=== PATIENT | female | born 2005 | race Hispanic/Latino ===

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

== ENCOUNTER 2024-10-02 11:30 | Emergency (ER) | payer SELFPAY ==
[~2024-10-02] VITALS: Ht 154.9 cm; Wt 49.9 kg
[~2024-10-02 11:30] MED LIST changes: +PANT40GR PO
[2024-10-02] MEDS: ondanSETRON 4MG INJ IVP ONE (12:18)
[2024-10-02] MEDS: morPHINE 4 MG SYG IVP ONE (12:18)
[2024-10-02] MEDS: 0.9%NACL 1000ML 1,000 ML IV ONE (12:18)
--- NOTE | 2024-10-02 12:20 | HMCIMG ---
US PELVIC NON-OB COMP HISTORY: Left lower quadrant pain COMPARISON: 10/03/2021 TECHNIQUE: Transabdominal pelvic ultrasound study was performed. FINDINGS: The uterus measures 6.4 x 2.9 x 3.7 cm. The right ovary is not well visualized. The left ovary measures 2.3 x 2 x 2.5 cm. There is left adnexal cyst measuring 3.9 x 3.4 x 3.1 cm unchanged. Flow is seen in left ovary. Endometrial thickness is 9 mm. No free fluid is seen in the cul-de-sac. IMPRESSION: 1. No adnexal mass is seen. There is left adnexal cyst measuring 3.9 x 3.4 x 3.1 cm unchanged.
[2024-10-02 12:24] LABS: APPEARANCE,URINE CLEAR (CLEAR); BILIRUBIN,URINE NEGATIVE (NEGATIVE); COLOR,URINE LIGHT-YELLOW (YELLOW); GLUCOSE, URINE (UA) NEGATIVE (NEGATIVE); KETONES,URINE NEGATIVE (NEGATIVE); LEUKOCYTE ESTERASE ,URINE NEGATIVE Leu/uL (NEGATIVE); NITRATE,URINE NEGATIVE (NEGATIVE); OCCULT BLOOD,URINE NEGATIVE (NEGATIVE); PROTEIN,URINE NEGATIVE (NEGATIVE); UROBILINOGEN,URINE 0.2 mg/dL (0.2-1.0)
--- NOTE | 2024-10-02 12:26 | ERN ---
ED Note History of Present Illness Stated Complaint: PELVIC PAIN Chief Complaint: Abdominal Pain Time Seen by MD: 11:33 Time Seen by Midlevel: 11:33 Dictation: Patient is a 19-year-old female with a history of ovarian cysts who presents to the emergency department with complaints of left lower abdominal pain onset last night. Patient denies any nausea, vomiting, diarrhea, constipation. Denies vaginal bleeding or discharge. Denies . Allergies: Coded Allergies: No Known Allergies (Unverified Allergy, Unknown, 03/05/19) Home Meds Active Scripts Ibuprofen (Ibuprofen) 600 Mg Tablet, 600 MG PO Q6H PRN for PAIN, #10 TAB Prov:FLOR BURTON TOLL REPAIRER CENTRAL OFFICE 10/02/24 Pantoprazole Sodium (Pantoprazole Sodium) 40 Mg Granpkt.dr, 40 MG PO DAILY, #15 PACK Prov:MELVINA GIRALDO MD 11/15/22 Ibuprofen (Ibuprofen) 600 Mg Tablet, 600 MG PO Q6H PRN for PAIN, #40 TAB 0 Refills Prov:RYAN PATTERSON MD 07/29/22 Oseltamivir Phosphate (Tamiflu) 75 Mg Cap, 75 MG PO BID for 5 Days, #10 CAP Prov:JULIET SOOD MD 03/30/22 Naproxen Sodium (Aleve) 220 Mg Tablet, 440 MG PO BID, #30 TAB Prov:ADALBERTO HUGO TOLL REPAIRER CENTRAL OFFICE 10/03/21 Past Medical History Past Medical History: Asthma, Ovarian Cyst Surgical History: Other Surgical History Other: OVARIAN CYST Social History: Negative, Lives with family LMP: Sep 27, 2024 : 0 RN Note Reviewed/Agreed w/PFSH: Yes Review of System Dictation Constitutional: Negative for fever,chills, and weight loss Eyes: Negative for injury, pain,redness, and discharge ENT: Negative for injury,pain or swelling Cardiovascular: Negative for chest pain, palpitations, and edema Respiratory: Negative for shortness of breath, cough, and wheezing, Abdomen/GI: Negative for nausea, vomiting, diarrhea, and constipation positive for left lower abdominal pain Back: Negative for injury and pain : Negative for injury, bleeding and discharge MS/Extremity: Negative for injury and deformity Skin: Negative for rash, and discoloration Neuro: Negative for headache, weakness, numbness, tingling, and seizure Psych: Negative for suicide ideation, homicidal ideation, and hallucinations Initial Vital Sign VS Vital Signs Date Time Temp Pulse Resp B/P (MAP) Pulse Ox O2 Delivery O2 Flow Rate FiO2 10/02/24 11:48 98.6 81 20 109/74 97 Room Air 0 10/02/24 11:56 21 Physical Exam Dictation Vital Signs reviewed General Appearance: Alert, oriented x 3, no acute distress, well developed, nourished. Head and Face: non-traumatic. Eyes: PERRL, pink conjunctivas, eyelid no trauma, anterior chamber with arcus senilis. Ears: Pinnas intact and no signs of trauma or erythema ear canals clear and no discharge TM no erythema Nose: No discharge, no bleeding. Oropharynx: Mouth normal, tongue pink. pharynx clear,no erythema, tonsils no exudates, no abscesses noted, mucous membrane moist Neck: Supple, non-tender, no thyromegaly, no masses, no JVD, no bruits Breast:Deferred Chest:No tenderness, no crepitus, no paradoxical movement, no retractions Lungs:Clear, well-ventilated, symmetric, no rales, no wheezing, no rhonchi, no stridor, good breath sounds bilaterally Heart: Regular rate, regular rhythm, no murmur, no gallops Vascular: no peripheral edema, Abdomen: Soft, positive bowel sounds, nondistended, no guarding, Left lower quadrant tenderness., no rebound, no masses no hepatomegaly, no splenomegaly, no Chacko's sign, no hernias. Rectal: Deferred Genital: Deferred Neurological: Normal speech, motor function intact, sensory function intact Musculoskeletal: Neck nontender, full range of motion, back nontender, full r henrik of motion, Extremities: nontender, full range of motion Skin: Color pink, dry, no turgor, no rash, no lacerations, no abrasions, no contusions. Lymphatic: Deferred Results (Laboratory/Radiology) Laboratory/Radiology Laboratory Tests Test 10/02/24 12:14 White Blood Count 3.4 K/uL (4.8-10.8) L Red Blood Count 4.42 MIL/uL (4.00-5.50) Hemoglobin 12.7 g/dL (12.0-16.0) Hematocrit 39.6 % (36-48) Mean Corpuscular Volume 89.6 fL (80-100) Mean Corpuscular Hemoglobin 28.7 pg (27.0-33.0) Mean Corpuscular Hemoglobin Concent 32.1 g/dL (32.0-36.0) Red Cell Distribution Width 14.6 % (11.0-15.5) Platelet Count 194 K/uL (130-400) Mean Platelet Volume 10.9 fL (7.5-10.5) H Immature Granulocyte % (Auto) 0.3 % (0-1) Neutrophils (%) (Auto) 50.5 % (40.0-77.0) Lymphocytes (%) (Auto) 41.6 % (21.0-51.0) Monocytes (%) (Auto) 6.1 % (3.0-13.0) Eosinophils (%) (Auto) 1.2 % (0.0-8.0) Basophils (%) (Auto) 0.3 % (0.0-5.0) Neutrophils # (Auto) 1.7 K/uL (1.8-7.7) L Lymphocytes # (Auto) 1.4 K/uL (1.0-4.8) Monocytes # (Auto) 0.2 K/uL (0.1-1.0) Eosinophils # (Auto) 0.04 K/uL (0.00-0.70) Basophils # (Auto) 0.01 K/uL (0.00-0.20) Absolute Immature Granulocyte (auto 0.01 K/uL (0-1) Nucleated Red Blood Cells 0.0 % (0.0-0.19) Urine Color LIGHT-YELLOW (YELLOW) Urine Appearance CLEAR (CLEAR) Urine pH 6.0 (5.0-8.0) Urine Specific [place] 1.020 (1.001-1.031) Urine Protein NEGATIVE mg/dL (NEGATIVE) Urine Glucose (UA) NEGATIVE mg/dL (NEGATIVE) Urine Ketones NEGATIVE mg/dL (NEGATIVE) Urine Occult Blood NEGATIVE (NEGATIVE) Urine Nitrate NEGATIVE (NEGATIVE) Urine Bilirubin NEGATIVE mg/dL (NEGATIVE) Urine Urobilinogen 0.2 mg/dL (0.2-1.0) Urine Leukocyte Esterase NEGATIVE Jeniffer/uL Urine HCG, Qualitative NEGATIVE (NEGATIVE) Sodium Level 141 mmol/L (136-145) Potassium Level 3.9 mmol/L (3.5-5.1) Chloride Level 102 mmol/L (101-111) Carbon Dioxide Level 29 mmol/L (21-32) Blood Urea Nitrogen 12 mg/dL (7-18) Creatinine 0.7 mg/dL (0.5-1.0) Glomerular Filtration Rate Calc 127 mL/min (>90) Random Glucose 89 mg/dL (70-105) Total Calcium 8.9 mg/dL (8.5-10.1) PATIENT: JOSE CAMPOVERDE MR#: [id number] : 2005 SEX: F AGE: 19 LOCATION: [facility] ORDER [id number] STATUS: REG ER REPORT#: [id number] SERVICE [id number] REASON: left lower pelvic pain ORDERING PHYSICIAN: FLOR BURTON PROCEDURE: PELVCOMP - US PELVIC NON-OB COMP US PELVIC NON-OB COMP HISTORY: Left lower quadrant pain COMPARISON: 10/03/2021 TECHNIQUE: Transabdominal pelvic ultrasound study was performed. FINDINGS: The uterus measures 6.4 x 2.9 x 3.7 cm. The right ovary is not well visualized. The left ovary measures 2.3 x 2 x 2.5 cm. There is left adnexal cyst measuring 3.9 x 3.4 x 3.1 cm unchanged. Flow is seen in left ovary. Endometrial thickness is 9 mm. No free fluid is seen in the cul-de-sac. IMPRESSION: 1. No adnexal mass is seen. There is left adnexal cyst measuring 3.9 x 3.4 x 3.1 cm unchanged. Labs Reviewed?: Yes ED Course ED Course Orders Procedure Category Date Status Time Cbc With Differential LAB 10/02/24 Complete 11:37 ,Urine Test LAB 10/02/24 Complete 11:37 Urinalysis Profile LAB 10/02/24 Complete 11:37 0.9%Nacl 1000ml (Ns PHA 10/02/24 Complete 1000ml) 12:00 Morphine 4mg Syg PHA 10/02/24 Complete (Morphine 4mg Syg) 12:00 Ondansetron 4mg Inj PHA 10/02/24 Complete (Zofran 4mg Inj) 12:00 Basic Metabolic Panel LAB 10/02/24 Complete 11:37 Us Pelvic Non-Ob Comp US 10/02/24 Resulted 11:37 Current Medications Medications (Trade) Dose Ordered Sig/Kimmy Route PRN Reason Start Time Stop Time Status Last Admin Dose Admin Morphine Sulfate (morPHINE 4MG SYG) 4 mg ONCE ONCE IVP 10/02/24 12:00 10/02/24 12:01 DC 10/02/24 12:18 Ondansetron HCl (zoFRAN 4MG INJ) 4 mg ONCE ONCE IVP 10/02/24 12:00 10/02/24 12:01 DC 10/02/24 12:18 Sodium Chloride 1,000 ml @ 0 mls/hr ONCE ONCE IV 10/02/24 12:00 10/02/24 12:01 DC 10/02/24 12:18 Vital Signs Date Time Temp Pulse Resp B/P (MAP) Pulse Ox O2 Delivery O2 Flow Rate FiO2 10/02/24 13:39 98.2 81 16 112/72 99 Room Air* 0 21 10/02/24 11:56 98.2 80 16 109/74 98 Room Air* 0 21 10/02/24 11:48 98.6 81 20 109/74 97 Room Air 0 Medical Decision Making MDM The Patient is a 19-year-old female with a history of ovarian cysts who presents to the emergency department with complaints of left lower abdominal pain onset last night. Patient denies any nausea, vomiting, diarrhea, constipation. Denies vaginal bleeding or discharge. Denies . Seizure no leukocytosis, no anemia, chemistry showed no electrolyte imbalance, normal renal function, urinalysis unremarkable. Awake ultrasound revealed a left adnexal cyst measuring 3.9 x 3.4 x 3.1 cm unchanged from previous. Positive flow. Patient's pain improved with pain medication. Patient in no acute distress, nontoxic appearance will be discharged to follow up with PCP in OBGYN. Differential diagnosis: Ovarian cyst, dehydration, ovarian torsion, ectopic Need for hospitalization: Patient does not meet criteria for hospitalization. There are no social concerns with this patient. DX & DISP Disposition: Discharge Departure Impression: Primary Impression: Adnexal cyst Condition: Stable Scripts Ibuprofen (Ibuprofen) 600 Mg Tablet 600 MG PO Q6H PRN for PAIN, #10 TAB Prov: MICHEALSHAWANDAFLOR TOLL REPAIRER CENTRAL OFFICE 10/02/24 Additional Instructions: Please follow up with your primary doctor in OBGYN in 1-2 days. If symptoms w orsen please return to ER. FOLLOW-UP WITH PRIMARY CARE PROVIDER IN 1 TO 2 DAYS. TAKE MEDICATIONS DIRECTED HERE IN THE EMERGENCY ROOM. OKAY TO CONTINUE HOME MEDICATIONS UNLESS OTHERWISE DISCUSSED DURING YOUR VISIT IN THE EMERGENCY ROOM TODAY. RETURN TO YOUR NEAREST EMERGENCY ROOM IF SYMPTOMS WORSEN OR IF THERE IS NO IMPROVEMENT. CALL 911 IF YOU NEED IMMEDIATE ASSISTANCE. TAKE TYLENOL OR MOTRIN [id number] NEEDED AND IF NO CONTRAINDICATIONS ARE PRESENT. INCREASE ORAL HYDRATION. A WOUND CULTURE OR URINE CULTURE WAS ORDERED HERE IN THE EMERGENCY ROOM DEPARTMENT PLEASE FOLLOW-UP WITH PRIMARY CARE PROVIDER AND ADVISE THEM TO GET REPEAT PORTS FROM OUR FACILITY. IF YOU HAD ANY DERIK WRAP/SPLINTS THAT WERE APPLIED HERE, PLEASE DO NOT REMOVE THEM UNTIL YOU SEE YOUR PRIMARY CARE OR SPECIALTY. Referrals: SHANNAN HDZ (PCP) Time of Disposition: 13:18 I have reviewed the case, and I agree with, Diagnosis and Plan FLOR BURTON Oct 02, 2024 12:26 OLGA CARTER DO Oct 04, 2024 08:21
[2024-10-02 12:27] LABS: BASOPHILS # (AUTO) 0.01 K/uL (0.00-0.20); BASOPHILS % (AUTO) 0.3 % (0.0-5.0); EOSINOPHILS # (AUTO) 0.04 K/uL (0.00-0.70); EOSINOPHILS % (AUTO) 1.2 % (0.0-8.0); HEMATOCRIT 39.6 % (36-48); IMMATURE GRANULOCYTE ABSOLUTE 0.01 K/uL (0-1); LYMPHOCYTES # (AUTO) 1.4 K/uL (1.0-4.8); LYMPHOCYTES % (AUTO) 41.6 % (21.0-51.0); MEAN CORPUSCULAR HEMOGLOBIN 28.7 pg (27.0-33.0); MEAN CORPUSCULAR HGB CONC 32.1 g/dL (32.0-36.0); MEAN CORPUSCULAR VOLUME 89.6 fL (80-100); MONOCYTES # (AUTO) 0.2 K/uL (0.1-1.0); MONOCYTES % (AUTO) 6.1 % (3.0-13.0); NEUTROPHILS # (AUTO) 1.7 K/uL (1.8-7.7); NEUTROPHILS % (AUTO) 50.5 % (40.0-77.0); PLATELET COUNT (AUTO) 194 K/uL (130-400); RED BLOOD CELL COUNT(AUTO) 4.42 MIL/uL (4.00-5.50); RED CELL DISTRIBUTION WIDTH 14.6 % (11.0-15.5); WHITE BLOOD COUNT (AUTO) 3.4 K/uL (4.8-10.8)
[2024-10-02 12:31] LABS: CREATININE 0.7 mg/dL (0.5-1.0); POTASSIUM 3.9 mmol/L (3.5-5.1)
[2024-10-02 12:32] LABS: ADD UA MICROSCOPIC NO; HCG,QUALITATIVE URINE NEGATIVE (NEGATIVE)
[2024-10-02] MEDS ORDERED: IBUP-2070 PO (13:22)
[2024-10-02 13:39] VITALS: BP 112/72; PULSE 81; RESP 16; TEMP 98.3; O2SAT 99
== END 2024-10-02 14:00 | disposition home or self-care (01) ==
LOC: EDH 11:30
DX: N83.8 Other noninflammatory disorders of ovary, fallopian tube and broad ligament (principal); J45.909 Unspecified asthma, uncomplicated; Z79.899 Other long term (current) drug therapy
CPT/HCPCS: 99285; 96374; 76856; 96375; 80048; 85025; 81003; 81025; 36415; J7030; J2405; J2270

== ENCOUNTER 2025-01-02 17:42 | Emergency (ER) | payer SELFPAY ==
[~2025-01-02] VITALS: Ht 154.9 cm; Wt 54.4 kg
[2025-01-02 18:02] LABS: NUCLEATED RED BLOOD CELLS 0.0 % (0.0-0.19); PLATELET COUNT (AUTO) 199.0 K/uL (130-400); RED BLOOD CELL COUNT(AUTO) 4.54 MIL/uL (4.00-5.50); RED CELL DISTRIBUTION WIDTH 14.9 % (11.0-15.5); WHITE BLOOD COUNT (AUTO) 8.0 K/uL (4.8-10.8)
[2025-01-02 18:10] LABS: APPEARANCE,URINE CLEAR (CLEAR); GLUCOSE, URINE (UA) NEGATIVE (NEGATIVE); LEUKOCYTE ESTERASE ,URINE NEGATIVE Leu/uL (NEGATIVE); NITRATE,URINE NEGATIVE (NEGATIVE); OCCULT BLOOD,URINE NEGATIVE (NEGATIVE)
[2025-01-02 18:11] LABS: ADD UA MICROSCOPIC NO
[2025-01-02 18:13] LABS: CREATININE 0.6 mg/dL (0.5-1.0); GLOMERULAR FILTR. RATE CALC 132.0 mL/min (>90); GLUCOSE,RANDOM 90.0 mg/dL (70-105); SODIUM SERUM 139.0 mmol/L (136-145); UREA NITROGEN, BLOOD 9.0 mg/dL (7-18)
[2025-01-02 18:28] LABS: HCG,QUANTITATIVE 0.0 mIU/mL (0-5)
[2025-01-02 19:05] VITALS: BP 115/75; PULSE 92; RESP 16; TEMP 98.3; O2SAT 98
[2025-01-02] MEDS: LIDOCAINE HCL 2% VISCOUS 15 ML UDCUP PO ONE (19:11)
[2025-01-02] MEDS: MAG/ALUM/SIMETH 30 ML UDCUP PO ONE (19:11)
[2025-01-02] MEDS: DICYCLOMINE HCL 10 MG/5 ML ML PO ONE (19:11)
--- NOTE | 2025-01-02 19:52 | ERN ---
ED Note History of Present Illness Stated Complaint: ABD PAIN Chief Complaint: Abdominal Pain Time Seen by MD: 17:45 Time Seen by Midlevel: 17:50 Dictation: 19-year-old female with a history of asthma coming in with complaints of epigastric pain and left lower quadrant pain for three days. Patient states she has a history of a left ovarian cyst removal. Patient denies having any fevers, nausea, vomiting. Unknown her last menstruation, states she is irregular. Allergies: Coded Allergies: No Known Allergies (Unverified Allergy, Unknown, 03/05/19) Home Meds Active Scripts Ibuprofen (Ibuprofen) 600 Mg Tablet, 600 MG PO Q6H PRN for PAIN, #10 TAB Prov:FLOR BURTON GANG MOWER OPERATOR 10/02/24 Pantoprazole Sodium (Pantoprazole Sodium) 40 Mg Granpkt.dr, 40 MG PO DAILY, #15 PACK Prov:MELVINA GIRALDO MD 11/15/22 Ibuprofen (Ibuprofen) 600 Mg Tablet, 600 MG PO Q6H PRN for PAIN, #40 TAB 0 Refills Prov:RYAN PATTERSON MD 07/29/22 Oseltamivir Phosphate (Tamiflu) 75 Mg Cap, 75 MG PO BID for 5 Days, #10 CAP Prov:JULIET SOOD MD 03/30/22 Naproxen Sodium (Aleve) 220 Mg Tablet, 440 MG PO BID, #30 TAB Prov:ADALBERTO HUGO GANG MOWER OPERATOR 10/03/21 Past Medical History Past Medical History: Ovarian Cyst Surgical History: Other Surgical History Other: OVARIAN CYST REMOVAL Social History: Negative, Lives with family LMP: November 20, 2024 : 0 Review of System Dictation Constitutional: Negative for fever,chills, and weight loss Eyes: Negative for injury, pain,redness, and discharge ENT: Negative for injury,pain or swelling Cardiovascular: Negative for chest pain, palpitations, and edema Respiratory: Negative for shortness of breath, cough, and wheezing, Abdomen/GI: Complaining of left lower quadrant pain Back: Negative for injury and pain : Negative for injury, bleeding and discharge MS/Extremity: Negative for injury and deformity Skin: Negative for rash, and discoloration Neuro: Negative for headache, weakness, numbness, tingling, and seizure Psych: Negative for suicide ideation, homicidal ideation, and hallucinations Review of Systems: was completed Initial Vital Sign VS Vital Signs Date Time Temp Pulse Resp B/P (MAP) Pulse Ox O2 Delivery O2 Flow Rate FiO2 01/02/25 17:45 97.9 94 18 117/79 94 Room Air 0 01/02/25 19:05 21 Physical Exam Dictation General: awake, alert, NAD Head/Face: Normocephalic, atraumatic Eyes: PERRL, EOMI, vision at baseline ENT: oral cavity clear, TMs clear, no signs of infection Neck: Trachea midline, supple, no nuchal rigidity Cardiovascular: RRR, normal S1/S2, No MRGs, no JVD Respiratory: CTAB, no respiratory distress, No rales or wheezes Abdomen: Soft, non-tender, non-distended, normal bowel sounds, no guarding or rebound. Skin: Warm, dry, normal turgor, no rash MS/Extremity: Pulses equal, no cyanosis, neurovascular intact, FROM Neuro: COAx4, GCS 15, strength 5/5, CN 2-12 intact, normal cerebellar exam, normal gait, Psych: Normal behavior, mood, and affect normal Results (Laboratory/Radiology) Laboratory/Radiology Laboratory Tests Test 01/02/25 17:51 01/02/25 17:56 Urine Color YELLOW (YELLOW) Urine Appearance CLEAR (CLEAR) Urine pH 6.5 (5.0-8.0) Urine Specific [place] 1.022 (1.001-1.031) Urine Protein NEGATIVE mg/dL (NEGATIVE) Urine Glucose (UA) NEGATIVE mg/dL (NEGATIVE) Urine Ketones 10 mg/dL (NEGATIVE) H Urine Occult Blood NEGATIVE (NEGATIVE) Urine Nitrate NEGATIVE (NEGATIVE) Urine Bilirubin NEGATIVE mg/dL (NEGATIVE) Urine Urobilinogen 0.2 mg/dL (0.2-1.0) Urine Leukocyte Esterase NEGATIVE Jeniffer/uL White Blood Count 8.0 K/uL (4.8-10.8) Red Blood Count 4.54 MIL/uL (4.00-5.50) Hemoglobin 13.6 g/dL (12.0-16.0) Hematocrit 41.0 % (36-48) Mean Corpuscular Volume 90.3 fL (80-100) Mean Corpuscular Hemoglobin 30.0 pg (27.0-33.0) Mean Corpuscular Hemoglobin Concent 33.2 g/dL (32.0-36.0) Red Cell Distribution Width 14.9 % (11.0-15.5) Platelet Count 199 K/uL (130-400) Mean Platelet Volume 10.4 fL (7.5-10.5) Nucleated Red Blood Cells 0.0 % (0.0-0.19) Sodium Level 139 mmol/L (136-145) Potassium Level 3.5 mmol/L (3.5-5.1) Chloride Level 103 mmol/L (101-111) Carbon Dioxide Level 26 mmol/L (21-32) Blood Urea Nitrogen 9 mg/dL (7-18) Creatinine 0.6 mg/dL (0.5-1.0) Glomerular Filtration Rate Calc 132 mL/min (>90) Random Glucose 90 mg/dL (70-105) Total Calcium 9.7 mg/dL (8.5-10.1) Lipase 26 U/L (16-77) Human Chorionic Gonadotropin, Quant 0 mIU/mL (0-5) Labs Reviewed?: Yes ED Course ED Course Orders Procedure Category Date Status Time Cbc Without LAB 01/02/25 Complete Differential 17:50 Basic Metabolic Panel LAB 01/02/25 Complete 17:50 Lipase LAB 01/02/25 Complete 17:50 Urinalysis Profile LAB 01/02/25 Complete 17:50 Hcg,Quantitative LAB 01/02/25 Complete 17:50 Us Pelvic Non-Ob Comp US 01/02/25 Taken 17:50 Lidocaine Hcl 2% PHA 01/02/25 Complete Viscous (Lidocaine Hcl 19:00 Mag/Alum/Simeth 30ml PHA 01/02/25 Complete (Maalox Plus 30ml) 19:00 Dicyclomine Hcl PHA 01/02/25 Complete (Bentyl 10mg/5ml 19:00 Ketorolac PHA 01/02/25 Complete Tromethamine 15mg/Ml 18:43 Current Medications Medications (Trade) Dose Ordered Sig/Kimmy Route PRN Reason Start Time Stop Time Status Last Admin Dose Admin Al Hydroxide/Mg Hydroxide (MAALox PLUS 30ML) 30 ml ONCE ONCE PO 01/02/25 19:00 01/02/25 19:01 DC 01/02/25 19:11 Dicyclomine HCl (Bentyl 10mg/5ml Syrup) 10 mg ONCE ONCE PO 01/02/25 19:00 01/02/25 19:01 DC 01/02/25 19:11 Ketorolac Tromethamine (toRADol) 15 mg ONCE STAT IM 01/02/25 18:43 01/02/25 18:46 DC 01/02/25 19:11 Lidocaine HCl (Lidocaine HCl 2% Viscous) 10 ml ONCE ONCE PO 01/02/25 19:00 01/02/25 19:01 DC 01/02/25 19:11 Vital Signs Date Time Temp Pulse Resp B/P (MAP) Pulse Ox O2 Delivery O2 Flow Rate FiO2 01/02/25 19:05 98.2 92 16 115/75 98 Room Air* 0 21 01/02/25 17:45 97.9 94 18 117/79 94 Room Air 0 Medical Decision Making MDM MDM: 19-year-old female with a history of asthma coming in with complaints of epigastric pain and left lower quadrant pain for three days. Patient states she has a history of a left ovarian cyst removal. Patient denies having any fevers, nausea, vomiting. Unknown her last menstruation, states she is irregular. Blood work is unremarkable. Preliminary report shows flow to bilateral ovaries, a cyst in the left ovary in tracer free fluid in the cul-de-sac. Repeat my physical abdominal exam, abdomen is soft, nontender on palpation. Discussed findings with the patient and mother. Educated them that they need to follow up outpatient with an OBGYN as she may need a elective removal of the cyst again. Educated on signs and symptoms of when to return to the ER like severe abdominal pain, nausea and vomiting fever. Both verbalized understanding, answered all questions. Differential diagnosis: Urinary tract infection, gastritis, PUD, left ovarian cyst, ectopic , ovarian torsion Rationale: Tests considered and ordered secondary to shared decision making include: Previous outside records reviewed: Old ER visits. Risk of complication and/or morbidity or mortality of patient management: None Medications-Per medication reconciliation Need for hospitalization: Patient does not meet criteria for hospitalization. Need for emergency major/minor surgery: No There are no social concerns with this patient. Prescription drug management Prescriptions will include symptomatic care Patient's prior external medical records from other ER visits were reviewed by me as indicated. Prior testing and results from previous visits were reviewed. Prior tests were taken into account with medical decision making and resource utilization, independent historian/historians were used to obtain complete medical history. I independently interpreted the test that were performed, results were reviewed by me and considered findings on radiology if ordered. Medical management and examination interpretation discussions were had by me with other qualified healthcare professionals as indicated for the patient's care. DX & DISP Disposition: Discharge Departure Impression: Primary Impression: Ovarian cyst Condition: Stable Additional Instructions: Follow up with an OBGYN outpatient. Return to an ER with OBGYN services if you develop any severe abdominal pain, nausea or vomiting. Referrals: SHANNAN HDZ (PCP) Time of Disposition: 19:51 I have reviewed the case, and I agree with, Diagnosis and Plan SYLVIA MEDINA NP Jan 02, 2025 19:52
--- NOTE | 2025-01-02 20:27 | HMCIMG ---
EXAMINATION: US Pelvis, Complete. CLINICAL HISTORY: Patient presents with left lower quadrant pain. TECHNIQUE: Transabdominal pelvic ultrasound (complete) with image documentation. COMPARISON: Compared to prior ultrasound pelvis dated October 02, 2024. FINDINGS: ENDOMETRIUM: Endometrial thickness measures 12 mm. UTERUS: The uterus measures 6.8 x 4.0 x 3.8 cm and is within normal limits. No fibroid or uterine mass identified. RIGHT OVARY: Measures 2.3 x 1.8 x 2.5 cm. Normal Doppler flow. No abnormal mass. LEFT OVARY: Measures 2.6 x 1.7 x 2.6 cm. Normal Doppler flow. Left ovarian cyst measuring 4.0 x 4.6 x 3.7 cm. FREE FLUID: Trace free fluid in the cul-de-sac. IMPRESSION: Left ovarian cyst measuring 4.0 x 4.6 x 3.7 cm, increased since the prior. Trace free fluid in the cul-de-sac. /[place]
== END 2025-01-02 20:03 | disposition home or self-care (01) ==
LOC: EDH 17:42
DX: N83.202 Unspecified ovarian cyst, left side (principal); R10.2 Pelvic and perineal pain; Z79.899 Other long term (current) drug therapy; Z98.890 Other specified postprocedural states
CPT/HCPCS: 99285; 76856; 80048; 84702; 83690; 85027; 81003; 36415; 96372; J1885

== ENCOUNTER 2025-06-19 08:50 | Emergency (ER) | payer SELFPAY ==
[~2025-06-19] VITALS: Ht 154.9 cm; Wt 56.7 kg
[~2025-06-19 08:50] MED LIST changes: +IBUP-1492 PO; -IBUP-2070 PO; +MOXIOS OU
--- NOTE | 2025-06-19 09:47 | ERN ---
ED Note History of Present Illness Stated Complaint: C/O LEFT SIDE PELVIC PAIN X 3 DAYS Chief Complaint: Pelvic Pain Time Seen by MD: 08:57 Dictation: Patient is a 20-year-old female who presented to the ER complaining of left lower quadrant/pelvic pain x4 days. Denies fever or chills. No urinary symptoms. Allergies: Coded Allergies: No Known Allergies (Unverified Allergy, Unknown, 03/05/19) Home Meds Active Scripts Ibuprofen (Ibuprofen) 600 Mg Tablet, 1 TAB PO TID for pain for 30 Days, #90 TAB 0 Refills with food Prov:ANDRZEJ MUNOZ MD 06/19/25 Moxifloxacin HCl (Vigamox 0.5% Ophth Soln) 0.5 % Opsol, 1 DROP OU TID for 7 Days, #5 ML Prov:TRENT BAZZI [employer] 05/12/25 Ibuprofen (Ibuprofen) 600 Mg Tablet, 600 MG PO Q6H PRN for PAIN, #10 TAB Prov:FLOR BURTON [employer] 10/02/24 Pantoprazole Sodium (Pantoprazole Sodium) 40 Mg Granpkt.dr, 40 MG PO DAILY, #15 PACK Prov:MELVINA GIRALDO MD 11/15/22 Ibuprofen (Ibuprofen) 600 Mg Tablet, 600 MG PO Q6H PRN for PAIN, #40 TAB 0 Refills Prov:RYAN PATTERSON MD 07/29/22 Oseltamivir Phosphate (Tamiflu) 75 Mg Cap, 75 MG PO BID for 5 Days, #10 CAP Prov:JULIET SOOD MD 03/30/22 Naproxen Sodium (Aleve) 220 Mg Tablet, 440 MG PO BID, #30 TAB Prov:ADALBERTO HUGO [employer] 10/03/21 Past Medical History Past Medical History: Asthma Additional Past Medical Hx: ovarian cyst Surgical History: Other Surgical History Other: OVARIAN SURGERY Social History: Negative, Lives with family History: Not Applicable : 0 Review of System Dictation NEGATIVE EXCEPT PER HPI Constitutional: Negative for fever,chills, and weight loss Eyes: Negative for injury, pain,redness, and discharge ENT: Negative for injury,pain or swelling Cardiovascular: denies chest pain, palpitations, and edema Respiratory: Negative for shortness of breath, cough, and wheezing, Abdomen/GI: Left lower quadrant abdominal pain Back: Negative for injury and pain : Negative for injury, bleeding and discharge MS/Extremity: Negative for injury and deformity Skin: Negative for rash, and discoloration Neuro: Negative for headache, weakness, numbness, tingling, and seizure Psych: Negative for suicide ideation, homicidal ideation, and hallucinations Initial Vital Sign VS Vital Signs Date Time Temp Pulse Resp B/P (MAP) Pulse Ox O2 Delivery O2 Flow Rate FiO2 06/19/25 08:51 98.1 82 16 120/71 99 Room Air 06/19/25 11:05 0 21 Physical Exam Dictation General: awake, alert, NAD Head/Face: Normocephalic, atraumatic Eyes: PERRL, EOMI, vision at baseline ENT: oral cavity clear, TMs clear, no signs of infection Neck: Trachea midline, supple, no nuchal rigidity Cardiovascular: RRR, normal S1/S2, No MRGs, no JVD Respiratory: CTAB, no respiratory distress, No rales or wheezes Abdomen: Soft , left groin tenderness Skin: Warm, dry, normal turgor, no rash MS/Extremity: Pulses equal, no cyanosis, neurovascular intact, FROM Neuro: COAx4, GCS 15, strength 5/5, CN 2-12 intact, normal cerebellar exam, normal gait, Psych: Normal behavior, mood, and affect normal Results (Laboratory/Radiology) Laboratory/Radiology Laboratory Tests Test 06/19/25 09:30 06/19/25 09:53 Urine Color LIGHT-YELLOW (YELLOW) Urine Appearance CLEAR (CLEAR) Urine pH 5.5 (5.0-8.0) Urine Specific Athena 1.027 (1.001-1.031) Urine Protein NEGATIVE mg/dL (NEGATIVE) Urine Glucose (UA) NEGATIVE mg/dL (NEGATIVE) Urine Ketones NEGATIVE mg/dL (NEGATIVE) Urine Occult Blood NEGATIVE (NEGATIVE) Urine Nitrate NEGATIVE (NEGATIVE) Urine Bilirubin NEGATIVE mg/dL (NEGATIVE) Urine Urobilinogen 0.2 mg/dL (0.2-1.0) Urine Leukocyte Esterase NEGATIVE Jeniffer/uL Urine HCG, Qualitative NEGATIVE (NEGATIVE) White Blood Count 5.9 K/uL (4.8-10.8) Red Blood Count 4.11 MIL/uL (4.00-5.50) Hemoglobin 12.3 g/dL (12.0-16.0) Hematocrit 37.9 % (36-48) Mean Corpuscular Volume 92.2 fL (80-100) Mean Corpuscular Hemoglobin 29.9 pg (27.0-33.0) Mean Corpuscular Hemoglobin Concent 32.5 g/dL (32.0-36.0) Red Cell Distribution Width 14.6 % (11.0-15.5) Platelet Count 178 K/uL (130-400) Mean Platelet Volume 10.7 fL (7.5-10.5) H Immature Granulocyte % (Auto) 0.3 % (0-1) Neutrophils (%) (Auto) 70.5 % (40.0-77.0) Lymphocytes (%) (Auto) 21.3 % (21.0-51.0) Monocytes (%) (Auto) 6.8 % (3.0-13.0) Eosinophils (%) (Auto) 0.8 % (0.0-8.0) Basophils (%) (Auto) 0.3 % (0.0-5.0) Neutrophils # (Auto) 4.2 K/uL (1.8-7.7) Lymphocytes # (Auto) 1.3 K/uL (1.0-4.8) Monocytes # (Auto) 0.4 K/uL (0.1-1.0) Eosinophils # (Auto) 0.05 K/uL (0.00-0.70) Basophils # (Auto) 0.02 K/uL (0.00-0.20) Absolute Immature Granulocyte (auto 0.02 K/uL (0-1) Nucleated Red Blood Cells 0.0 % (0.0-0.19) Sodium Level 139 mmol/L (136-145) Potassium Level 4.2 mmol/L (3.5-5.1) Chloride Level 104 mmol/L (101-111) Carbon Dioxide Level 28 mmol/L (21-32) Blood Urea Nitrogen 14 mg/dL (7-18) Creatinine 0.6 mg/dL (0.5-1.0) Glomerular Filtration Rate Calc 131 mL/min (>90) Random Glucose 93 mg/dL (70-105) Total Calcium 9.2 mg/dL (8.5-10.1) ED Course ED Course Orders Procedure Category Date Status Time Urinalysis Profile LAB 06/19/25 Complete 09:12 ,Urine Test LAB 06/19/25 Complete 09:44 Cbc With Differential LAB 06/19/25 Complete 09:44 Basic Metabolic Panel LAB 06/19/25 Complete 09:44 Ct Abdomen/Pelvis CT 06/19/25 Resulted W/Contrast 09:44 Iohexol (Omnipaque) PHA 06/19/25 Complete 11:20 Ketorolac PHA 06/19/25 Complete Tromethamine 15mg/Ml 12:30 Us Pelvic Non-Ob Comp US 06/19/25 Resulted 12:37 Current Medications Medications (Trade) Dose Ordered Sig/Kimmy Route PRN Reason Start Time Stop Time Status Last Admin Dose Admin Iohexol (Omnipaque) 75 ml STK-MED ONCE IV 06/19/25 11:20 06/19/25 11:20 DC Ketorolac Tromethamine (toRADol) 15 mg ONCE ONCE IV 06/19/25 12:30 06/19/25 12:31 DC 06/19/25 12:52 Vital Signs Date Time Temp Pulse Resp B/P (MAP) Pulse Ox O2 Delivery O2 Flow Rate FiO2 06/19/25 15:42 97.5 62 20 109/67 98 Room Air* 0 21 06/19/25 11:05 98.1 73 18 120/82 97 Room Air* 0 21 06/19/25 08:51 98.1 82 16 120/71 99 Room Air Medical Decision Making MDM Abdominal pain Possible UTI Possible diverticulitis Possible UA, test, CT abdomen, laboratory workup DX & DISP Disposition: Discharge Departure Impression: Primary Impression: Cyst of ovary, left Condition: Stable Scripts Ibuprofen (Ibuprofen) 600 Mg Tablet 1 TAB PO TID for pain for 30 Days, #90 TAB 0 Refills with food Prov: ANDRZEJ MUNOZ MD 06/19/25 Additional Instructions: RETURN TO ER FOR ANY ACUTE OR WORSENING SYMPTOMS. FOLLOW-UP IN 1-2 DAYS WITH PRIMARY PROVIDER FOR RECHECK OF TODAY'S SYMPTOMS. Referrals: SHANNAN HDZ (PCP) Time of Disposition: 15:11 ANDRZEJ MUNOZ MD Jun 19, 2025 09:47
[2025-06-19 09:55] LABS: APPEARANCE,URINE CLEAR (CLEAR); GLUCOSE, URINE (UA) NEGATIVE (NEGATIVE); LEUKOCYTE ESTERASE ,URINE NEGATIVE Leu/uL (NEGATIVE); NITRATE,URINE NEGATIVE (NEGATIVE); OCCULT BLOOD,URINE NEGATIVE (NEGATIVE)
[2025-06-19 09:59] LABS: ADD UA MICROSCOPIC NO
[2025-06-19 10:04] LABS: IMMATURE GRANULOCYTE ABSOLUTE 0.02 K/uL (0-1); NUCLEATED RED BLOOD CELLS 0.0 % (0.0-0.19); PLATELET COUNT (AUTO) 178 K/uL (130-400); RED BLOOD CELL COUNT(AUTO) 4.11 MIL/uL (4.00-5.50); RED CELL DISTRIBUTION WIDTH 14.6 % (11.0-15.5); WHITE BLOOD COUNT (AUTO) 5.9 K/uL (4.8-10.8)
[2025-06-19 10:12] LABS: CREATININE 0.6 mg/dL (0.5-1.0); GLOMERULAR FILTR. RATE CALC 131.0 mL/min (>90); GLUCOSE,RANDOM 93.0 mg/dL (70-105); SODIUM SERUM 139.0 mmol/L (136-145); UREA NITROGEN, BLOOD 14.0 mg/dL (7-18)
[2025-06-19] MEDS ORDERED: IOHEXOL-350 75 ML VIAL IV ONE (11:20)
--- NOTE | 2025-06-19 12:20 | HMCIMG ---
EXAM: CT Abdomen and Pelvis with IV Contrast CLINICAL HISTORY: Left lower quadrant pain. TECHNIQUE: Axial computed tomography images of the abdomen and pelvis with intravenous contrast. CONTRAST: With intravenous contrast. COMPARISON: US Pelvic 01/02/25 FINDINGS: LUNG BASES: The lung bases appear clear. No pleural effusions. LIVER: Unremarkable. GALLBLADDER AND BILE DUCTS: The gallbladder appears within normal limits. No radiopaque gallstones. No biliary ductal dilatation. PANCREAS: Unremarkable. SPLEEN: Unremarkable. ADRENAL GLANDS: Unremarkable. KIDNEYS, URETERS, AND BLADDER: The kidneys appear within normal limits. No hydronephrosis or hydroureter. No urinary calculi. STOMACH AND BOWEL: Unremarkable appearance of the stomach and bowel. No evidence of bowel obstruction. No evidence suggesting enteritis or colitis. APPENDIX: No evidence of acute appendicitis on CT examination. PERITONEUM: Trace free fluid in the cul-de-sac. No free air. LYMPH NODES: No lymphadenopathy. REPRODUCTIVE: Cervix appears diffusely bulky in size, measuring 4 x 6 cm. A hypodense, well-defined left adnexal cyst closely abutting the ovary, measuring 5.3 x 4.2 x 4.1 cm, posteriorly displacing the urinary bladder with maintained fat planes. No evidence of calcification, septation, or solid component within the cyst. VASCULATURE: No evidence of abdominal aortic aneurysm. BONES: No aggressive appearing osseous lesion. No acute osseous pathology. IMPRESSION: Well-defined left ovarian cyst measuring up to 5.3 cm, without suspicious imaging features. Diffuse bulky appearance of the cervix. Correlation with clinical examination and pelvic ultrasound findings suggested. Trace free fluid in the cul-de-sac. /Kevin
--- NOTE | 2025-06-19 14:59 | HMCIMG ---
EXAM: US Pelvis, Complete. CLINICAL HISTORY: left ovary cyst painful TECHNIQUE: transabdominal pelvic ultrasound (complete) with image documentation. COMPARISON: ultrasound dated 01.02.[address] dated 06.19.25. FINDINGS: ENDOMETRIUM: Endometrium measures approximately 7 mm in thickness, within normal limits. UTERUS/CERVIX: Uterus measures approximately 5.7 3.0 3.3 cm. Normal uterine contour and echotexture are seen. No uterine fibroid or other myometrial mass is identified. RIGHT OVARY: Right ovary measures approximately 1.8 1.1 1.3 cm. Normal Doppler vascularity is preserved. No focal ovarian mass is seen. LEFT OVARY: Left ovary is obscured on the present examination. A left adnexal cyst is noted measuring approximately 3.9 4.3 4.0 cm. The cyst appears stable in size compared with prior ultrasound dated 01.02.[address] dated 06.19.25. FREE FLUID: No free fluid is seen. IMPRESSION: Stable left adnexal cyst compared with prior ultrasound dated 01.02.[address] dated 06.19.25. Left ovary is obscured on the present examination. Otherwise unremarkable transabdominal pelvic ultrasound. /[place]
[2025-06-19] MEDS ORDERED: IBUP-1492 PO (15:13)
[2025-06-19 15:42] VITALS: BP 109/67; PULSE 62; RESP 20; TEMP 97.6; O2SAT 98
== END 2025-06-19 15:43 | disposition home or self-care (01) ==
LOC: EDH 08:50
DX: N83.202 Unspecified ovarian cyst, left side (principal); J45.909 Unspecified asthma, uncomplicated; Z79.899 Other long term (current) drug therapy; Z79.1 Long term (current) use of non-steroidal anti-inflammatories (NSAID)
CPT/HCPCS: 99285; 74177; 96374; 76856; 80048; 85025; 81003; 81025; 36415; J1885; Q9967